=== PATIENT | female | born 1980 | race Caucasian/White ===

== ENCOUNTER → 2018-11-19 | Emergency (ER) | payer MEDICAID, OTHER ==
[~2018-11-19] MED LIST: Adacel (T-DAP) 0.5 ML SYRINGE ONE; Bacitracin Zinc Ointment 30 gm TUBE ONE
== END ==
LOC: BURERS 21:18
DX: S31.811A Laceration without foreign body of right buttock, initial encounter (principal); F17.210 Nicotine dependence, cigarettes, uncomplicated; Z79.899 Other long term (current) drug therapy; W26.0XXA Contact with knife, initial encounter
CPT/HCPCS: 12032; 90471; 90715